=== PATIENT | male | born 1995 | race African-American/Black ===

== ENCOUNTER 2020-09-12 02:47 | Emergency (ER) | payer OTHER ==
[~2020-09-12] VITALS: Ht 188 cm; Wt 147.4 kg
[2020-09-12 08:31] VITALS: BP 123/77
--- NOTE | 2020-09-15 17:06 | PATH ---
[facility] [address] [place] [address] PATHOLOGY RPT PROCEDURE Name: DAVIDJOHNATHON SHAHRIAR Room #: DEP MARY ANN Faulkner#: [id number] Admission: 09/12/20 Date of : 89 Discharge: 09/12/20 Report #: [id number] Path Case #: [id number] [facility] Accession Number: [id number] . 01 Material submitted: . PART A: esophagus - DISTAL ESOPHAGUS R/O EOSINOPHILIC ESOPHAGITIS. Modifiers: distal PART B: esophagus - MID ESOPHAGUS R/O EOSINOPHILIC ESOPHAGITIS. Modifiers: mid . 01 Clinical history: . FOOD BOLUS STRICTURE . 02 Diagnosis: A. Squamous mucosa, distal esophagus rule out eosinophilic esophagitis, endoscopic biopsy: - Mild active esophagitis with a focal increase in intraepithelial eosinophils ranging from 5 to 6/HPF. - Negative for dysplasia or malignancy. . B. Squamous mucosa, mid esophagus rule out eosinophilic esophagitis, endoscopic biopsy: - Mild active esophagitis. - No increase in intraepithelial eosinophils. LBQ 09/15/2020 1435 Local . 02 Comment: Examination of the esophageal biopsy tissue shows squamous mucosa with a focal increase in intraepithelial eosinophils. Although eosinophils are commonly encountered in inflammation due to reflux esophagitis, the eosinophils in the present specimen are numerous, exceeding 5-6/HPF. Apart from reflux esophagitis, potential etiologies for the histologic pattern include allergic and collagen vascular diseases, fungal or parasitic infections, and eosinophilic esophagitis (idiopathic). Please correlate with clinical and endoscopic findings. (IUV/db; 09/15/2020) . 02 Electronically signed: . Annie James MD, Pathologist NPI- [id number] . 01 Gross description: . A. The specimen is received in formalin, labeled "Johnathon Cruz Jr., distal esophagus biopsy, R/O eosinophilic esophagitis". Received are two segments of pale garcia soft tissue ranging in size from 0.2 to 0.3 cm in maximum dimensions. The specimen is submitted entirely [place] [address] PATHOLOGY RPT PROCEDURE Name: JOHNATHON CRUZ JR Room #: DEP Kaushik#: [id number] Admission: 09/12/20 Date of : 89 Discharge: 09/12/20 Report #: [id number] Path Case #: [id number] . B. The specimen is received in formalin, labeled "Johnathon Cruz Jr., biopsy mid esophagus, R/O eosinophilic esophagitis". Received are two segments of pale garcia soft tissue ranging in size from 0.3 to 0.4 cm in maximum dimensions. The specimen is submitted entirely in cassette B1. (CAA; 09/14/2020) QAC/QAC 09/14/2020 1647 Local . 02 Pathologist provided ICD-10: K20.90 . 02 CPT . 408695, [id number] Specimen Comment: A courtesy copy of this report has been sent to [phone], [phone] Specimen Comment: [id number] Specimen Comment: Report sent to / DR HEIN Performed at: [address], [place] [id number] MD Lonnie Lee MD Phone: [phone] Performed at: [address] [id number] MD Annie James MD Phone: [phone]
== END 2020-09-12 08:32 | disposition home or self-care (01) ==
LOC: ER 02:47
DX: T18.128A Food in esophagus causing other injury, initial encounter (principal); Y92.89 Other specified places as the place of occurrence of the external cause
CPT/HCPCS: 62110; 62900